=== PATIENT | female | born 1955 | race Caucasian/White ===

== ENCOUNTER 2016-08-11 19:00 | Inpatient (IN) | payer MEDICARE, OTHER ==
--- NOTE | ~2016-08-11 | PN ---
Unit #: [id number] #: [id number] Patient: JAMA RUBIN [id number] [facility] [address] [place] [address] [id number] I MR#: [id number] NAME: JAMA RUBIN ROOM: 14 Age: 61 Sex: F Admission Date: 08/11/2016 : 1955 Attending Physician: Дмитрий Castaneda M.D. Admitting Physician: Дмитрий Castaneda M.D. Primary Care Physician: Generic Doctor Not In System [facility] PROGRESS NOTES DATE 08/13/2016 DISCUSSION Ms. Rubin received intramuscular medication again this morning due to agitation and is sleeping soundly. Staff reports that she has been agitated, rambling and clearly psychotic in her interactions with staff. She has required 2 episodes of seclusion and restraints since admission. A phone call from her family indicates that the patient was discharged from [facility] in the recent past but has been noncompliant with medications. We are going to attempt to obtain a medication list and treatment history from the family and from [facility]. ASSESSMENT Schizophrenia, paranoid type. PLAN At this point I am going to initiate Seroquel 300 mg t.i.d. as an empiric treatment for psychosis and also Depakote 500 mg twice daily for mood stability. When a full medication list is available, we will change the patient back to her previously effective medications. Dictated by... Bozena Pratt/virgen TD: 08/16/2016 07:54 JOB #: [id number] Unit #: [id number] #: [id number] Patient: JAMA RUBIN PROGRESS NOTES Page 1 of 1 X Дмитрий Castaneda MD X PROGRESS NOTE
--- NOTE | ~2016-08-11 | PA ---
Unit #: [id number] #: [id number] Patient: MICKIE RUBIN [id number] [place] [address] [id number] I MR#: [id number] NAME: MICKIE RUBIN ROOM: 14 Age: 61 Sex: F Admission Date: 08/11/2016 : 1955 Date of Assessment: Attending Physician: Дмитрий Castaneda M.D. Admitting Physician: Дмитрий Castaneda M.D. Primary Care Physician: Generic Doctor Not In System PSYCHIATRIC ASSESSMENT INFORMANTS The patient, reliable; OLOP, reliable. CHIEF COMPLAINT Psychosis. HISTORY OF PRESENT ILLNESS Mickie Rubin is a 61-year-old woman, whose family dropped her off at our hospital in an extremely agitated state. She was highly agitated, paranoid, and appeared acutely psychotic. She was also physically agitated and could not be fully assessed in the assessment center. She was threatening toward her daughter who had apparently been instrumental in bringing her to the hospital. She was clearly psychotic and due to her agitation was taken directly to the unit. PAST PSYCHIATRIC HISTORY At this time, we did not have any psychiatric history. The patient evidently suffers from a psychotic disorder, but has been noncompliant with treatment. FAMILY PSYCHIATRIC HISTORY Unavailable. SOCIAL HISTORY The patient has adult children who are involved in her care. We were unable to obtain further history from the patient at this time. PAST MEDICAL HISTORY No known medical problems. MEDICATIONS None currently. ALLERGIES At this time, the patient is allergic to morphine and codeine. SUBSTANCE ABUSE HISTORY Unknown. MENTAL STATUS EXAMINATION The patient presented as a disheveled woman, who appeared her stated age. She was extremely sedated at the time of my initial assessment due to her receiving several doses of intramuscular medications to treat her extreme Unit #: [id number] #: [id number] Patient: MICKIE RUBIN agitation. We will attend a complete mental status examination when the patient is able to cooperate. ASSETS AND LIABILITIES The patient has medical insurance and seems to have supportive family. Liabilities include apparent noncompliance with medicine and psychotic relapse. ADMITTING DIAGNOSES AXIS I: Schizophrenia, paranoid type (provisional diagnosis), rule out bipolar disorder, mixed with psychotic features. AXIS II: No diagnosis. AXIS III: None known. AXIS IV: AXIS V: PSYCHIATRIC PLAN The patient was admitted and placed on psychosis precautions. We will attempt to obtain history from the patient's family regarding her most recent treatment and any other medical needs, and will enroll her in our reality based therapy program. TREATMENT GOALS Resolution of psychosis, stabilization of mood, improvement in insight, improvement in coping skills. DISCHARGE PLAN [facility]. ESTIMATED LENGTH OF STAY 5 days. Dictated by... Дмитрий Castaneda M.D. JONE/mich TD: 08/15/2016 00:48 JOB #: [id number] PSYCHIATRIC ASSESSMENT Page 1 of 1 X Дмитрий Castaneda MD X PSYCHIATRIC ASSESSMENT
--- NOTE | ~2016-08-11 | HP ---
Unit #: [id number] #: [id number] Patient: MICKIE ARMSTRONG [id number] [place] [address] [id number] I MR#: [id number] NAME: MICKIE ARMSTRONG ROOM: 14 Age: 61 Sex: F Admission Date: 08/11/2016 : 1955 Attending Physician: Дмитрий Castaneda M.D. Admitting Physician: Дмитрий Castaneda M.D. Primary Care Physician: Generic Doctor Not In System HISTORY AND PHYSICAL HISTORY OF PRESENT ILLNESS Mickie is a 61-year-old female admitted to [address] [place] [address] on 08/11/2016 for psychosis. PAST MEDICAL HISTORY Breast cancer and sleep apnea. PAST SURGICAL HISTORY Bilateral mastectomy and breast augmentation. SOCIAL HISTORY Smokes eight cigarettes daily. No alcohol or illegal drug use. She is currently and living with her fiance. FAMILY HISTORY Noncontributory. REVIEW OF SYSTEMS CONSTITUTIONAL: No fever or chills. HEENT: Denies any sore throat, ear pain or runny nose. CARDIOVASCULAR: Denies chest pain, irregular heart rhythm or palpitations. CHEST: Denies shortness of breath or cough. No hemoptysis. GASTROINTESTINAL: Denies nausea, vomiting, diarrhea or chronic constipation. ENDOCRINE: Denies history of increased thirst or urination. No recent significant weight loss or gain. GENITOURINARY: Denies dysuria, frequency, or hematuria. SKIN: Denies any rashes. HEMATOLOGIC: Denies history of increased bleeding or bruising. MUSCULOSKELETAL: Denies any hot, swollen joints. No generalized muscle pain. NEUROLOGIC: Denies problems with vision or speech. No frequent, severe headaches. No numbness, tingling or weakness in any extremities. Denies loss of bladder or bowel control. CURRENT MEDICATIONS None. ALLERGIES Codeine and morphine. Unit #: [id number] #: [id number] Patient: MICKIE ARMSTRONG PHYSICAL EXAMINATION GENERAL: Alert, oriented, in no acute distress. VITAL SIGNS: Blood pressure 162/82, heart rate 117, respirations 22. HEIGHT: 5 foot 7 inches. WEIGHT: 150 pounds. SKIN: Warm and dry without rash or lesion. HEENT: Normocephalic. TMs not viewed. Oral and nasal passages clear. Conjunctivae clear. PERRLA. EOMs intact. NECK: Supple without lymphadenopathy or thyromegaly. HEART: Regular rate and rhythm without murmur. LUNGS: Clear. ABDOMEN: Soft, nontender, without masses or hepatosplenomegaly. : Not done. EXTREMITIES: No evidence of cyanosis, clubbing or edema. Moves all without focal deficit. NEUROLOGICAL: Grossly within normal limits. Cranial Nerves: II: Visual sanchez are intact. III, IV AND : Extraocular movements are intact. Pupils are equal, round and reactive to light. V: Facial sensation is grossly normal. VII: Facial movements and expression are normal. VIII: Auditory acuity grossly intact. IX, X: Uvula is midline. Phonation is normal. XI: Patient shrugs shoulders and turns head normally. XII: Tongue protrudes in the midline. Sensory and Motor Function: Sensory and motor sensation is grossly normal. Motor: moves all extremities well. Coordination: Gait is normal. Deep Tendon Reflexes: Intact. IMPRESSION 1. Psychiatric admission. 2. History of breast cancer. 3. Sleep apnea. RECOMMENDATIONS Psychiatric, per psychiatrist. MEDICAL: I see no contraindications to participating in facility's activities. MEDICAL PROGNOSIS Good. MEDICAL CONDITION Stable. Dictated by... Navneet Schaefer/sofia TD: 08/13/2016 04:09 JOB #: [id number] Unit #: [id number] #: [id number] Patient: MICKIE ARMSTRONG HISTORY AND PHYSICAL Page 1 of 1 X REINALDO OLIVER APRN X HISTORY AND PHYSICAL
--- NOTE | ~2016-08-11 | PN ---
Unit #: [id number] #: [id number] Patient: JAMA ARMSTRONG [id number] [facility] [address] [place] [address] [id number] MR#: [id number] NAME: JAMA ARMSTRONG ROOM: P114 Age: 61 Sex: F Admission Date: 08/11/2016 : 1955 Attending Physician: Дмитрий Castaneda M.D. Admitting Physician: Дмитрий Castaneda M.D. Primary Care Physician: Generic Doctor Not In System [facility] PROGRESS NOTES DATE 08/15/2016 DISCUSSION Jama is very manic this morning with pressured speech, highly irritable and expansive mood, and hyperreligiosity. She makes multiple complaints again her family, the police, and the hospital. She reports that she resents being given intramuscular medications and feels violated by these, and my attempts to explain were unresponsive. She is alert and oriented to person, location, partially to situation and partially to time. Memory and concentration are extremely impaired and her thought processes continue to be pressured and psychotic. ASSESSMENT Bipolar manic versus schizophrenia. PLAN We will increase Seroquel to 200 mg 3 times a day. A mental inquest warrant has been filed and her initial hearing will be this afternoon. Dictated by... Bozena PrattH/ts TD: 08/16/2016 11:20 JOB #: [id number] [facility] PROGRESS NOTES Page 1 of 1 X Дмитрий Castaneda MD PROGRESS NOTE
--- NOTE | ~2016-08-11 | PN ---
Unit #: [id number] #: [id number] Patient: MICKIE ARMSTRONG [id number] [facility] [address] [place] [address] [id number] I MR#: [id number] NAME: MICKIE ARMSTRONG ROOM: P114 Age: 61 Sex: F Admission Date: 08/11/2016 : 1955 Attending Physician: Дмитрий Castaneda M.D. Admitting Physician: Дмитрий Castaneda M.D. Primary Care Physician: Generic Doctor Not In System [facility] PROGRESS NOTES DATE 08/14/2016 DISCUSSION Mickie has slept a little bit better over the last couple of days. We have restarted her previous medications once these were confirmed by her outpatient provider and by her family. She continues to have racing thoughts, paranoia and extreme agitation when discussing the situation with her family. She has not required intermuscular medications in the past 48 hours. ASSESSMENT Schizophrenia paranoid type. PLAN Continue current treatment plan. Dictated by... Bozena Pratt/vy TD: 08/16/2016 05:18 JOB #: [id number] [facility] PROGRESS NOTES Page 1 of 1 X Дмитрий Castaneda MD X PROGRESS NOTE
--- NOTE | ~2016-08-11 | PN ---
Unit #: [id number] #: [id number] Patient: MICKIE ARMSTRONG [id number] [facility] [address] [place] [address] [id number] MR#: [id number] NAME: MICKIE ARMSTRONG ROOM: P110 Age: 61 Sex: F Admission Date: 08/11/2016 : 1955 Attending Physician: Дмитрий Castaneda M.D. Admitting Physician: Дмитрий Castaneda M.D. Primary Care Physician: Generic Doctor Not In System [facility] PROGRESS NOTES DATE 08/19/2016 DISCUSSION Mickie is much calmer now and tends to stay away from the rather chaotic milieu on her unit. Her speech is mildly pressured but much less so than at the time of admission and mood is less labile and irritable. She has decreased paranoia and continues to be free of suicidal or homicidal ideation. ASSESSMENT Bipolar, mixed with psychotic features. PLAN Continue current treatment plan. Dictated by... Bozena Pratt/satya TD: 08/28/2016 22:13 JOB #: [id number] [facility] PROGRESS NOTES Page 1 of 1 X Дмитрий Castaneda MD PROGRESS NOTE
--- NOTE | ~2016-08-11 | PN ---
Unit #: [id number] #: [id number] Patient: MICKIE ARMSTRONG [id number] [facility] [address] [place] [address] [id number] I MR#: [id number] NAME: MICKIE ARMSTRONG ROOM: P110 Age: 61 Sex: F Admission Date: 08/11/2016 : 1955 Attending Physician: Дмитрий Castaneda M.D. Admitting Physician: Дмитрий Castaneda M.D. Primary Care Physician: Generic Doctor Not In System [facility] PROGRESS NOTES DATE 08/20/2016 DISCUSSION Mickie is much improved with the compliance with Seroquel. She is calmer with less racing thoughts, better grooming, less intrusiveness, much less irritability and no psychosis. She does complain of sedation from Seroquel. She is alert and fully oriented with some decrease in her insight, but is otherwise significantly improved. ASSESSMENT Bipolar, mixed with psychotic features. PLAN To accommodate the patient's complaints of sedation, we will change Seroquel from 200 mg t.i.d. to 400 mg at bedtime only. I anticipate discharge in the near future. Dictated by... Bozena Pratt/satya TD: 08/28/2016 21:58 JOB #: [id number] [facility] PROGRESS NOTES Page 1 of 1 X Дмитрий Castaneda MD X PROGRESS NOTE
--- NOTE | ~2016-08-11 | PN ---
Unit #: [id number] #: [id number] Patient: JAMA ARMSTRONG [id number] [facility] [address] [place] [address] [id number] I MR#: [id number] NAME: JAMA ARMSTRONG ROOM: 14 Age: 61 Sex: F Admission Date: 08/11/2016 : 1955 Attending Physician: Дмитрий Castaneda M.D. Admitting Physician: Дмитрий Castaneda M.D. Primary Care Physician: Generic Doctor Not In System [facility] PROGRESS NOTES DATE 08/16/2016 DISCUSSION Jama is sleepy this morning and apparently took her medication last night. She is now compliant after the court found probable cause for her MIW yesterday. Mood remains expansive and labile with an irritable affect. She is alert and oriented to person and location, partially to situation and partially to time. Memory and concentration remain impaired. ASSESSMENT Bipolar manic. PLAN Continue current treatment plan and permit the use of the patient's CPAP machine for restful sleep. Dictated by... Bozena Pratt/bzg TD: 08/18/2016 10:17 JOB #: [id number] [facility] PROGRESS NOTES Page 1 of 1 X Дмитрий Castaneda MD X PROGRESS NOTE
--- NOTE | ~2016-08-11 | DS ---
Unit #: [id number] #: [id number] Patient: MICKIE RUBIN [id number] [facility] [address] [place] [address] [id number] MR#: [id number] NAME: MICKIE RUBIN ROOM: P110 Age: 61 Sex: F Admission Date: 08/11/2016 : 1955 Discharge Date: 08/21/2016 Attending Physician: Дмитрий Castaneda M.D. DISCHARGE SUMMARY REASON FOR ADMISSION Ms. Rubin is a 61-year-old woman with a history of bipolar disorder, whose family dropped her off at our hospital in an extremely agitated and psychotic state. She could not be fully assessed and was taken straight to the unit. DIAGNOSTIC STUDIES LABORATORY RESULTS: Please see hospital chart. HOSPITAL COURSE Mickie was admitted and placed on psychosis precautions. After her history was obtained from her pharmacy and family, her home medications were restarted and Seroquel 100 mg three times a day was initiated for treatment of psychosis which was later increased to 200 mg three times a day. She required several incidence of seclusion and restraint with intramuscular medications after admission, and Depakote was added for control of mood stability. The Seroquel eventually helped her to calm down, although her insight was poor and she had to be placed on a mental inquest warrant to extend her hospital stay. The initial mental inquest hearing was upheld with probable cause. The patient began to calm under the influence of her medications, and due to sedation, her Seroquel was changed to 400 mg at bedtime only. She tolerated these changes well, and on the date of discharge, she had significantly improved with resolution of her psychosis and mood lability. DISCHARGE DIAGNOSES AXIS I: Bipolar mixed with psychotic features. AXIS II: No diagnosis. AXIS III: None acute. AXIS IV: AXIS V: DISCHARGE INSTRUCTIONS Follow up with her private psychiatrist through [facility]. DISCHARGE MEDICATIONS Depakote ER 1500 mg at bedtime for mood stability, fluoxetine 20 mg daily for depression, BuSpar 15 mg t.i.d. for anxiety, Seroquel 400 mg at bedtime for psychosis. Primary care medicines were Lyrica 75 mg b.i.d. for pain, Mobic 15 mg daily for pain, Claritin 10 mg daily for allergies, and Lipitor 10 mg at bedtime for high cholesterol. Unit #: [id number] #: [id number] Patient: MICKIE RUBIN CONDITION AT DISCHARGE Improved. PROGNOSIS Good. DIET Per primary care doctor. ACTIVITY Per primary care doctor. Dictated by... Дмитрий Castaneda M.D. JONE/mich TD: 08/28/2016 15:55 JOB #: [id number] DISCHARGE SUMMARY Page 1 of 1 X Дмитрий Castaneda MD X DISCHARGE SUMMARY
== END 2016-08-21 11:20 | disposition home or self-care (01) | DRG 885 ==
LOC: P2S 20:55 → P1S 20:55 → P2S 21:20 → P1S 08-12 00:47
DX: F31.10 Bipolar disorder, current episode manic without psychotic features, unspecified (principal); F31.64 Bipolar disorder, current episode mixed, severe, with psychotic features; G47.30 Sleep apnea, unspecified; Z85.3 Personal history of malignant neoplasm of breast; Z91.19 Patient's noncompliance with other medical treatment and regimen; Z88.5 Allergy status to narcotic agent
CPT/HCPCS: J2060; J3486

== ENCOUNTER 2016-09-16 18:00 | Inpatient (IN) | payer MEDICARE, OTHER ==
--- NOTE | ~2016-09-16 | PA ---
Unit #: [id number] #: [id number] Patient: MICKIE RUBIN [id number] [facility] [address] [place] [address] [id number] MR#: [id number] NAME: MICKIE RUBIN ROOM: P110 Age: 61 Sex: F Admission Date: 09/16/2016 : 1955 Date of Assessment: Attending Physician: Дмитрий Castaneda M.D. Admitting Physician: Дмитрий Castaneda M.D. Primary Care Physician: Generic Doctor Not In System PSYCHIATRIC ASSESSMENT INFORMANTS Patient, partially reliable; OLOP, reliable. CHIEF COMPLAINT "she thought I was acting like I was manic". HISTORY OF PRESENT ILLNESS Mickie Rubin is a 61-year-old woman with a history of bipolar disorder, who has apparently been decompensating at home. Family suspects that she is not taking all of her medication. She came in with a very grandiose and hyper-jainism on presentation stating that she has "a big constitution party tonight" and that it "turns out, I was arrested". She claims that she was attacked by police for "praying in my home", a story similar to the presenting complaint that she had last month when she was admitted here. She claims to be fully compliant with medications, but then admits that she does not take them when she does not want to. She was tangential, manic, and psychotic in the assessment center and was placed on a 72-hour hold for readmission. PAST PSYCHIATRIC HISTORY One previous admission to this facility in July of 2016. The patient has multiple episodes of treatment at [facility] as well and erratic compliance. FAMILY PSYCHIATRIC HISTORY None available. SOCIAL HISTORY The patient has adult children, who are involved in her care. She is apparently living with family and is on long-term disability for her mental illness. PAST MEDICAL HISTORY No chronic medical problems. MEDICATIONS Please see MAR. ALLERGIES Morphine and Codeine. SUBSTANCE USE HISTORY None reported. Unit #: [id number] #: [id number] Patient: MICKIE RUBIN MENTAL STATUS EXAMINATION Mickie presented as a mildly disheveled woman, who appeared her stated age. She was pleasant, but irritable at the time of my assessment. Her speech was mildly pressured, and focused on obtaining hospital discharge and minimizing symptoms. Her speech was somewhat pressured. Her mood was expansive and irritable with a congruent affect. She was alert and oriented to person, location, roughly to time, but not situation. Memory and concentration appeared impaired. Her thought processes demonstrated racing thoughts, hyper religiosity, and mild paranoia. She denied any suicidal or homicidal ideation. Insight and judgment were impaired. Fund of knowledge and abstraction were fair. ASSETS AND LIABILITIES The patient has supportive family, healthcare insurance, and connection with outside caregivers. Liabilities include apparent noncompliance with treatment. ADMITTING DIAGNOSES AXIS I: Bipolar, mixed with psychotic features. AXIS II: No diagnosis. AXIS III: None acute. AXIS IV: AXIS V: PSYCHIATRIC PLAN Mickie was admitted and placed on suicide precautions. Due to the risk of manic activation, we would discontinue fluoxetine 20 mg daily and the patient denies the wish to take buspirone anymore, so this will be discontinued as well. Seroquel will be increased to 600 mg daily and Depakote continued at its current dose. Her primary care medications will be continued unchanged. TREATMENT GOALS Resolution of terrell, improvement in insight, and improvement in coping skills. DISCHARGE PLANNING Follow up with [facility]. ESTIMATED LENGTH OF STAY 5 days. Dictated by... Дмитрий Castaneda M.D. [facility]/mich TD: 09/18/2016 16:31 JOB #: [id number] Unit #: [id number] #: [id number] Patient: MICKIE RUBIN PSYCHIATRIC ASSESSMENT Page 1 of 1 X Дмитрий Castaneda MD X PSYCHIATRIC ASSESSMENT
--- NOTE | ~2016-09-16 | HP ---
Unit #: [id number] #: [id number] Patient: MICKIE ARMSTRONG [id number] [facility] [address] [place] [address] [id number] I MR#: [id number] NAME: MICKIE ARMSTRONG ROOM: [facility] Age: 61 Sex: F Admission Date: 09/16/2016 : 1955 Attending Physician: Дмитрий Castaneda M.D. Admitting Physician: Дмитрий Castaneda M.D. Primary Care Physician: Generic Doctor Not In System HISTORY AND PHYSICAL HISTORY OF PRESENT ILLNESS Mickie is a 61 year old admitted to [address] [place] [address] with psychosis. PAST MEDICAL HISTORY 1. Breast cancer. 2. Obstructive sleep apnea 3. Hyperlipidemia 4. Bilateral mastectomy with reconstructions 5. Pelvic lap. ALLERGIES Morphine, codeine. SOCIAL HISTORY Smokes one-half pack per day. Denies alcohol and illicit drug use. FAMILY HISTORY Medically noncontributory. REVIEW OF SYSTEMS CONSTITUTIONAL: No fever or chills. HEENT: Denies any sore throat, ear pain or runny nose. CARDIOVASCULAR: Denies chest pain, irregular heart rhythm or palpitations. CHEST: Denies shortness of breath or cough. No hemoptysis. GASTROINTESTINAL: Denies nausea, vomiting, diarrhea or chronic constipation. ENDOCRINE: Denies history of increased thirst or urination. No recent significant weight loss or gain. GENITOURINARY: Denies dysuria, frequency, or hematuria. SKIN: Denies any rashes. HEMATOLOGIC: Denies history of increased bleeding or bruising. MUSCULOSKELETAL: Denies any hot, swollen joints. No generalized muscle pain. NEUROLOGIC: Denies problems with vision or speech. No frequent, severe headaches. No numbness, tingling or weakness in any extremities. Denies loss of bladder or bowel control. CURRENT MEDICATIONS 1. Lipitor 10 mg q.h.s. 2. Seroquel 400 mg q.h.s. 3. Depakote ER 1500 mg q.h.s. 4. Seroquel 200 mg q.a.m. Unit #: [id number] #: [id number] Patient: MICKIE ARMSTRONG 5. Lyrica 75 mg b.i.d. 6. Mobic 15 mg q day 7. Claritin 10 mg q day 8. BuSpar 15 mg t.i.d. 9. Milk of Magnesia p.r.n. 10. Maalox p.r.n. 11. Tylenol p.r.n. PHYSICAL EXAMINATION GENERAL: Alert, well-nourished, in no apparent distress. VITAL SIGNS: Blood pressure 110/86, heart rate 80, respirations 16, temperature 98.6. WEIGHT: 155 pounds. HEIGHT: 5'5". SKIN: Warm and dry without rash or lesion. HEENT: Normocephalic. TMs not viewed. Oral and nasal passages clear. Conjunctivae clear. Pupils equal, round and reactive to light and accommodation. Extraocular movements intact. NECK: Supple without lymphadenopathy or thyromegaly. HEART: Regular rate and rhythm without murmur. LUNGS: Clear. ABDOMEN: Soft, nontender. : Not done. EXTREMITIES: No evidence of cyanosis, clubbing or edema. Moves all extremities without focal deficit. NEUROLOGICAL: Grossly within normal limits. Cranial Nerves: II: Visual sanchez are intact. III, IV AND : Extraocular movements are intact. Pupils are equal, round and reactive to light. V: Facial sensation is grossly normal. VII: Facial movements and expression are normal. VIII: Auditory acuity grossly intact. IX, X: Uvula is midline. Phonation is normal. XI: Patient shrugs shoulders and turns head normally. XII: Tongue protrudes in the midline. Sensory and Motor Function: Sensory and motor sensation is grossly normal. Motor: moves all extremities well. Coordination: Gait is normal. Deep Tendon Reflexes: Intact. IMPRESSION Psychiatric admission RECOMMENDATIONS PSYCHIATRIC: Per psychiatrist. MEDICAL: I see no contraindications to participating in facility's activities. MEDICAL PROGNOSIS Good. MEDICAL CONDITION Stable. Dictated by... Manuela Todd P.A.-C. for Unit #: [id number] #: [id number] Patient: MICKIE ARMSTRONG Bozena Lopez/sofia TD: 09/17/2016 21:43 JOB #: [id number] HISTORY AND PHYSICAL Page 1 of 1 X Manuela Todd HISTORY AND PHYSICAL
--- NOTE | ~2016-09-16 | DS ---
Unit #: [id number] #: [id number] Patient: JAMA ARMSTRONG [id number] [facility] [address] [place] [address] [id number] MR#: [id number] NAME: JAMA ARMSTRONG ROOM: [facility] Age: 61 Sex: F Admission Date: 09/16/2016 : 1955 Discharge Date: 09/19/2016 Attending Physician: Дмитрий Castaneda M.D. Primary Care Physician: Generic Doctor Not In System DISCHARGE SUMMARY REASON FOR ADMISSION The patient is a 61-year-old woman with a history of bipolar disorder, whose family reported she was continuing to decompensate in the home setting. She did have some expansive and hyperreligious ideation, but showed no evidence of dangerousness or risk of harm to self or others. She had been admitted on a 72-hour hold, and was continued on her previous medications. LABORATORY DATA Please see hospital chart. HOSPITAL COURSE The patient was admitted and placed on suicide precautions. Fluoxetine was discontinued, and the patient declined to take buspirone anymore. Seroquel was increased to 600 mg daily and Depakote was continued. She tolerated these medications with no significant problems, and continues to demonstrate mildly grandiose and hyperreligious ideation throughout the hospitalization, however, at the expiration of her 72-hour hold, there was no further clinical support for involuntary hospitalization, and the patient requested discharge as was her right to do so. DISCHARGE DIAGNOSES AXIS I: Bipolar, mixed with psychotic features. AXIS II: No diagnosis. AXIS III: None acute. AXIS IV: AXIS V: DISCHARGE INSTRUCTIONS Follow up with intensive outpatient through our facility and [facility]. DISCHARGE MEDICATIONS Seroquel 200 mg in the morning and 400 mg at bedtime for mood stability and Depakote ER 1500 mg at bedtime for mood stability. CONDITION AT DISCHARGE Fair. PROGNOSIS Fair. The patient maintains compliance and followup. Unit #: [id number] #: [id number] Patient: JAMA ARMSTRONG DIET AND ACTIVITY Ad mari. Dictated by... Дмитрий Castaneda M.D. JONE/mich TD: 10/05/2016 13:39 JOB #: [id number] DISCHARGE SUMMARY Page 1 of 1 X Дмитрий Castaneda MD DISCHARGE SUMMARY
[2016-09-17 09:46] LABS: BASOPHIL% 0.6 % (0-2.5); EOSINOPHIL# 0.4 X10e3 (0-0.7); EOSINOPHIL% 5.5 % (0.0-7.0); HEMATOCRIT 41.8 % (35.0-45.0); LYMPHOCYTE# 2.6 X10e3 (1.0-3.5); LYMPHOCYTE% 33.4 % (17.0-45.0); MEAN CORPUSCULAR HEMOGLOBIN 31.2 PG (28-34); MEAN CORPUSCULAR HGB CONC 33.5 g/dL (30-36); MEAN PLATELET VOLUME 9.2 FL (6.5-11.5); MONOCYTE# 0.7 X10e3 (0-1.0); MONOCYTE% 8.7 % (3.0-12.0); NEUTROPHIL% 51.8 % (40-75); PLATELET COUNT 246 X10e3 (140-420); RED CELL DISTRIBUTION WIDTH 13.3 % (11.0-15.5); WHITE BLOOD COUNT 7.8 X10e3 (4.0-10.5)
[2016-09-17 09:56] LABS: ALBUMIN SERUM 4.2 g/dL (3.5-5.0); BILIRUBIN,TOTAL 0.8 mg/dL (0.2-2.0); CALCIUM SERUM 9.6 mg/dL (8.4-10.2); CREATININE SERUM 0.5 mg/dL (0.6-1.4); GLOM FILT RATE Estimated 103.7 mL/min (>60); POTASSIUM 3.8 mmol/L (3.5-5.1)
[2016-09-17 10:05] LABS: DIFF IND NO
== END 2016-09-19 15:05 | DRG 885 ==
LOC: P1S 20:59
PROVIDERS: Psychiatry & Neurology Psychiatry
DX: F31.60 Bipolar disorder, current episode mixed, unspecified (principal); E78.5 Hyperlipidemia, unspecified; Z85.3 Personal history of malignant neoplasm of breast; F17.210 Nicotine dependence, cigarettes, uncomplicated
CPT/HCPCS: 80053; 80164; 82140; 85025